=== PATIENT | female | born 1970 | race Caucasian/White ===

== ENCOUNTER 2020-12-30 09:00 | Outpatient (REF) | payer OTHER, SELFPAY ==
--- NOTE | ~2020-12-30 | XR_ITS ---
EXAMINATION: XR KNEE, BILATERAL XR KNEE, RIGHT CLINICAL INFORMATION: Pain COMPARISON: 07/04/2019 TECHNIQUE: AP standing views of both knees. [place] and lateral views of the right knee. FINDINGS: AP standing views of both knees demonstrate significant narrowing of the medial joint space compartments bilaterally with marginal spurring. The spurring has increased since previous study of 07/04/2019. No acute fracture or dislocation is evident. Lateral and sunrise views of the right knee demonstrate some spurring about the patellofemoral joint more prominent about the lateral facet. There is a minimal right knee effusion. XR/XR knee standing BI IMPRESSION: Some progression in bilateral medial joint space compartment degenerative spurring. Right knee degenerative change involving the medial and patellofemoral joints as described. Minimal right knee effusion.
--- NOTE | ~2020-12-30 | XR_ITS ---
EXAMINATION: XR KNEE, BILATERAL XR KNEE, RIGHT CLINICAL INFORMATION: Pain COMPARISON: 07/04/2019 TECHNIQUE: AP standing views of both knees. Lane and lateral views of the right knee. FINDINGS: AP standing views of both knees demonstrate significant narrowing of the medial joint space compartments bilaterally with marginal spurring. The spurring has increased since previous study of 07/04/2019. No acute fracture or dislocation is evident. Lateral and sunrise views of the right knee demonstrate some spurring about the patellofemoral joint more prominent about the lateral facet. There is a minimal right knee effusion. XR/XR knee RT 2V IMPRESSION: Some progression in bilateral medial joint space compartment degenerative spurring. Right knee degenerative change involving the medial and patellofemoral joints as described. Minimal right knee effusion.
== END 2020-12-30 09:01 | disposition home or self-care (01) ==
LOC: HO.HOSX 09:00
PROVIDERS: Visit Provider Orthopaedic Surgery
DX: M17.11 Unilateral primary osteoarthritis, right knee (principal)
CPT/HCPCS: 20610; 73560; 73565; 99212; J1100

== ENCOUNTER → 2021-07-21 13:23 | Outpatient (BNVA) | payer OTHER, SELFPAY | PROVIDERS: PCP Physician Assistant; Visit Provider Orthopaedic Surgery | DX: M17.11 Unilateral primary osteoarthritis, right knee (principal); F11.20 Opioid dependence, uncomplicated | CPT/HCPCS: 20610; 99212; J1100 ==

== ENCOUNTER → 2021-12-05 10:44 | Outpatient (BNVA) | payer OTHER, SELFPAY | PROVIDERS: PCP Physician Assistant; Visit Provider Orthopaedic Surgery | DX: M17.11 Unilateral primary osteoarthritis, right knee (principal); F11.20 Opioid dependence, uncomplicated | CPT/HCPCS: 99212 ==

== ENCOUNTER 2022-10-19 14:03 | Outpatient (REF) | payer OTHER, SELFPAY ==
--- NOTE | ~2022-10-19 | MM_ITS ---
EXAMINATION: MM SCREENING DIGITAL BREAST TOMOSYNTHESIS, BILATERAL CLINICAL INFORMATION: Screening. Asymptomatic. The lifetime risk of breast cancer based on the Tyrer-Cuzick Model is 11%. COMPARISON: Mammography: 08/05/2015, 10/09/2012 (baseline). TECHNIQUE: Digital breast tomosynthesis is performed in both the craniocaudal and mediolateral oblique views along with computer-aided detection (CAD). Synthesized 2D images are generated from the tomosynthesis. FINDINGS: There are scattered areas of fibroglandular density (ACR BI-RADS breast composition Category b). Breast tissue density is symmetrically decreased since prior studies. No developing density or architectural abnormality or significant changes. There are no significant masses, abnormal calcifications, or other abnormalities. MM/MM tomosynthesis screening BI IMPRESSION: No mammographic evidence of malignancy. ASSESSMENT: BI-RADS 2: Benign RECOMMENDATION: Routine annual mammography screening. This patient's information was entered into a reminder system with a target due date for their next mammogram.
== END 2022-10-19 14:04 | disposition home or self-care (01) ==
LOC: HO.MAMMO 14:03
PROVIDERS: PCP Physician Assistant; Visit Provider Physician Assistant
DX: Z12.31 Encounter for screening mammogram for malignant neoplasm of breast (principal)
CPT/HCPCS: 77063; 77067

== ENCOUNTER 2023-07-04 10:07 | Outpatient (AMB) | payer OTHER, SELFPAY ==
--- NOTE | 2023-07-04 10:32 | A.OFFPC_ITS ---
Vital Signs 07/04/23 10:40 Height 5 ft 6 in Weight 207 lb 6 oz BMI 33.5 BP 100/60 Blood Pressure Location Rt brachial Position Sitting Pulse 89 Pulse Source Pulse Oximeter Pulse Oximetry (%) 99 Oxygen Delivery Method Room Air Intake Visit Reasons: medication follow up Global Engineering Manager Required: No Accompanied by: Self / Same As Patient Allergies fluorescein [FLUORESCEIN] Allergy (Severe, Verified 07/04/23 10:56) THROAT SWELLING, HIVES ragweed pollen [RAGWEED] Allergy (Intermediate, Verified 07/04/23 10:56) RUNNY NOSE tree and shrub pollen [TREE AND SHRUB POLLEN] Allergy (Intermediate, Verified 07/04/23 10:56) ITCHY EYES Medication List - Last Reconciled 07/04/23 by Brice Farrell PA-C albuterol sulfate 90 mcg/actuation 1 puff inhalation QID alprazolam 1 mg PO BID 30 days bupropion HCl 200 mg PO Q12H ryvyrgexlp-rklonxktuvzyl-xtni 50-325-40 mg 1 tab PO Q6H PRN carisoprodol 350 mg PO BID PRN cetirizine 10 mg PO DAILY fluticasone propionate 50 mcg/actuation 1 spray intranasal DAILY paroxetine HCl 40 mg PO DAILY 30 days zolpidem 5 mg PO BEDTIME PRN 30 days Tobacco use date assessed: 07/04/23 Dental Screening Dental Screen Date: 07/04/23 Did you have a dental visit in the last 12 months?: Yes Did you have a dental problem in the last 6 months where you did not have access to dental care?: No Was dental information given to patient?: Patient has dentist HPI medication follow up HPI Details Patient is a 52 year old female being evaluated today via telephone. Patient has a past medical history significant for generalized anxiety disorder, migraines, h/o opiate dependence- in remission,? melanoma day eyelid, intermittent asthma, Concerns--> reports having vasomotor symptoms to which she thinks is menopause. She has no follow-up with her food order expediter at this time. She is concerned about her weight and inability to lose weight. She has not formally doing any exercise. She reports she eats fairly well. She is interested in a GLP 1 to help her lose weight . LAINA: Reports she has been having a tough time as of late due to her husbands health. ?She reports she is now seeing a mental health therapist. She has been trying different SSRIs and most recently been placed on Paxil 40 mg which she reports is somewhat effective on reducing her anxiety and depression..? Has not been sleeping well and now using Ambien nightly. She report her anxiety has been elevated due to her current stressors. .. . Melanoma right eye:? She has follow-up with her specialist in [place], usually needs to get her liver enzymes checked annually. Also needs liver imaging to rule out malignant melanoma in the liver. Colon cancer screening- she is now willing to do colonoscopy [facility] Medical History Malignant melanoma Surgical History History of foot surgery History of eye surgery History of section History of tubal ligation Family History Father No problems noted. Mother Mental health disorder Maternal Grandmother Pacemaker Maternal Grandfather Lung cancer Paternal Grandmother Lung cancer Paternal Grandfather Past heart attack Sister Mental health disorder Social History Housing: House Alcohol intake: never Patient Tobacco Use Status: Former Tobacco user Tobacco use type: Cigarette Cigarettes Per Day: 4 Years Smoked: pt staes quit 8-9 mnths ago e-Cigarette/Vaping Use: Never Used service: No Current occupational status: disabled Cognitive needs: No Hearing needs: No Vision needs: No Questionnaire PHQ-9 Over the last 2 weeks, how often have you been bothered by any of the following problems? 1. Little interest or pleasure in doing things: several days 2. Feeling down, depressed, or hopeless: more than half the days 3. Trouble falling or staying asleep, or sleeping too much: nearly every day 4. Feeling tired or having little energy: nearly every day 5. Poor appetite or overeating: not at all 6. Feeling bad about yourself - or that you are a failure or have let yourself or your family down: several days 7. Trouble concentrating on things, such as reading the newspaper or watching television: nearly every day 8. Moving or speaking so slowly that other people could have noticed. Or the opposite - being so fidgety or restless that you have been moving around a lot more than usual: not at all 9. Thoughts that you would be better off or of hurting yourself in some way: not at all Total score: 13 Depression Screening Interpretation: Positive Depression Screening Follow-up: Existing condition Depression Screening Done: Yes 69157 - PHQ-9 Billing: Yes Source: Developed by Drs. Colin Grier, Mariah Taylor, Kei Mercado and colleagues, with an educational abhishek from [employer]. Thrive Questionnaire Date Thrive assessed: 07/04/23 I am a: Patient What is your living situation today?: I have a steady place to live Within the past 12 months, did the food you bought not last and you didn't have the money to get more?: Never true Within the past 12 months, did you worry whether your food would run out before you got money to buy more?: Never true Do you have trouble paying for medicines?: No Do you have trouble getting transportation to medical appointments?: No Do you have trouble paying your heating and electricity bill?: No Do you have trouble taking care of your child, family member or friend?: No Do you have trouble with day-to-day activities such as bathing, preparing meals, shopping, managing finances, etc.?: No Are you currently unemployed and looking for a job?: No Are you interested in more education?: No Please select the resources that you would like help with: None Currently or been in a relationship where the following occur: no concerns reported THRIVE Score: 0 AUDIT C Alcohol Use Questionnaire (AUDIT-C) 1. How often do you have a drink containing alcohol?: Never 3. How often do you have six or more drinks on one occasion?: Never Total Score: 0 LAINA-7 AMB Questionnaire LAINA-7 Date LAINA - 7 assessed: 07/04/23 Feeling nervous, anxious, or on edge: 3 = Nearly every day Not being able to stop or control worryin = Nearly every day Worrying too much about different things: 3 = Nearly every day Trouble relaxin = Nearly every day Being so restless that it is hard to sit still: 2 = More than half the days Becoming easily annoyed or irritable: 3 = Nearly every day Feeling afraid as if something awful might happen: 3 = Nearly every day Total LAINA-7 score (0-4 normal; 5-9 mild; 10-14 moderate; 15-21 severe): 20 Source: Developed by Drs. Colin Grier, Mariah Taylor, Kei Mercado and colleagues, with an educational abhishek from [employer]. LAINA-7 Assessment Billing LAINA-7 Assessment Tool: LAINA-7 Assessment 97075 Review of Systems Const Denies headache(s) Eyes Denies loss of vision ENT Denies vertigo, Denies dizziness, Denies headache(s) and Denies sore throat Card Denies chest pain, Denies leg edema and Denies lightheadedness Resp Denies cough, Denies hemoptysis and Denies wheezing GI Denies abdominal pain, Denies melena, Denies constipation, Denies diarrhea and Denies vomiting Denies urinary frequency, Denies dysuria and Denies urinary urgency Musc Denies arthralgias, Denies joint swelling, Denies numbness and Denies tingling Neuro Denies Abnormal speech present, Denies behavioral changes, Denies vertigo, Denies dizziness, Denies headache(s), Denies loss of vision, Denies memory loss, Denies numbness and Denies tingling Psych Denies anxiety, Denies behavioral changes, Denies depression, Denies memory loss and Denies panic attacks Brandon/Lymph Denies easy bleeding and Denies easy bruising Aller/Immun Denies wheezing Physical exam (Primary Care) Vital Signs: Last Vital Signs Pulse 89 07/04/23 10:40 BP 100/60 07/04/23 10:40 Pulse Ox 99 07/04/23 10:40 Oxygen Delivery Method Room Air 07/04/23 10:40 BMI result Body Mass Index 33.5 BMI Assessment/Plan discussion: High Tobacco/Smoking Status: Tobacco use Status Tobacco use date assessed 07/04/23 07/04/23 10:55 Patient Tobacco Use Status Former Tobacco user 07/04/23 10:32 Tobacco use type Cigarette 07/04/23 10:32 e-Cigarette/Vaping Use Never Used 07/04/23 10:55 PHQ-9: PHQ-9 Score PHQ-9: Total score 13 07/04/23 10:59 Depression Screening Interpretation: Positive Depression Screening Follow-up: Existing condition Thrive Assessment: Date of Thrive Assessment Date Thrive assessed 07/04/23 07/04/23 10:45 Currently or been in a relationship where the following occur: no concerns reported Const Other: Obese General: no acute distress, alert and awake Nutritional Appearance: well nourished Orientation/consciousness: oriented to person, oriented to place and oriented to time HENMT Ears: TM's normal bilaterally General nose exam: Normal nasal mucous membranes and turbinates present Eyes Conjunctivae: conjunctivae normal Sclerae: sclerae normal Pupils: Equal, round and reactive pupils present Neck Neck: Yes no lymphadenopathy and Yes no JVD Thyroid: Thyroid normal Carotids: no bruits Resp Effort & Inspection: normal respiratory effort and not tachypneic Auscultation: no crackles, no rales, no rhonchi and no wheezes Cardio Rate: regular rate Rhythm: regular rhythm Heart sounds: no murmurs and normal S1 and S2 GI Palpation (GI): Soft to palpation, nontender, no hepatomegaly and no splenomegaly Auscultation: normal bowel sounds Skin General skin exam: no rashes or lesions noted and dry skin Neuro General: oriented to person, oriented to place and oriented to time Cranial nerves: Yes Equal, round and reactive pupils present Speech: No Abnormal speech present Gait exam (Neuro): Normal gait present Motor exam (neuro): no tremor noted Extrem Right upper extremity: full ROM Left upper extremity: full ROM Right lower extremity: full ROM; no edema Left lower extremity: full ROM; no edema Psych Mental Status: mental status grossly normal Speech and movement: Normal speech and movement present Affect: normal affect Attitude: cooperative Thought process: Normal thought process present Assessment and Plan Assessment & Plan (1) Malignant melanoma: Code(s): C43.9 - Malignant melanoma of skin, unspecified Qualifiers: Eyelid: upper Laterality: right Melanoma location: eyelid including canthus Qualified Code(s): C43.111 - Malignant melanoma of right upper eyelid, including canthus Plan: Patient followed by specialist in [place] for her eye melanoma. She needs liver enzymes and liver imaging for malignant surveillance. (2) LAINA (generalized anxiety disorder): Code(s): F41.1 - Generalized anxiety disorder Plan: P Continues to suffer with moderate to severe anxiety. Patient's LAINA-7 score positive for moderate to severe anxiety which has been an existing condition for her. Uses alprazolam 1 mg b.i.d. now on Paxil 40 mg and feels it is somewhat effective on reducing her anxiety and depression. She reports she is still on look for a psychiatrist and will call to be on waiting list.. (3) MDD (major depressive disorder): Code(s): F32.9 - Major depressive disorder, single episode, unspecified Qualifiers: Active/Remission status: currently active Major depression episode sev erity: moderate Major depression recurrence: recurrent Qualified Code(s): F33.1 - Major depressive disorder, recurrent, moderate Plan: Patient does major depressive disorder and speaking with a mental health therapist at this time, she is still on look for a psychiatrist. Placed on Paxil 40 mg recently and feels it is helpful for her depressive mood. (4) Migraines: Code(s): G43.909 - Migraine, unspecified, not intractable, without status migrainosus Qualifiers: Intractability: not intractable Migraine type: without aura Status migrainosus presence: without status migrainosus Qualified Code(s): G43.009 - Migraine without aura, not intractable, without status migrainosus Plan: She reports her migraines have been fairly well controlled with only p.r.n. use of Fioricet. (5) Knee osteoarthritis: Code(s): M17.9 - Osteoarthritis of knee, unspecified Qualifiers: Laterality: bilateral Osteoarthritis type: primary Qualified Code(s): M17.0 - Bilateral primary osteoarthritis of knee Plan: Reports her bilateral knee pain continues to be a problem for her. She reports her knee pain hinder her from being more physically active. She was followed by [facility] in did get cortisone injections in the past. She will like to follow-up with ortho for possible cortisone injection. (6) Opiate dependence: Code(s): F11.20 - Opioid dependence, uncomplicated Qualifiers: Substance use status: uncomplicated Qualified Code(s): F11.20 - Opioid dependence, uncomplicated Plan: in remission - was on Suboxone for short term time. . (7) Obese: Code(s): E66.9 - Obesity, unspecified Qualifiers: Body mass index: BMI 33.0-33.9 Obesity classification: adult class 1 (BMI 30 - 34.9) Obesity type: due to excess calories Serious obesity comorbidity presence: without serious comorbidity Qualified Code(s): E66.09 - Other obesity due to excess calories; Z68.33 - Body mass index [BMI] 33.0-33.9, adult Plan: Patient's BMI is over 30 and she does understand she needs to be more physically active and adapt to better eating habits to reduce her weight. She is interested in starting a GLP 1 to help her lose weight. (8) Menopausal symptoms: Code(s): N95.1 - Menopausal and female climacteric states Plan: Will follow-up with her OBGYN about menopausal symptoms.. Did discuss the possibility of starting supplement black cohosh for her hot flashes. (9) Colon cancer screening: Code(s): Z12.11 - Encounter for screening for malignant neoplasm of colon Plan: She is willing now to do colonoscopy. Orders: Orders Vitamin D 25-OH Total 07/04/23 E66.09 - Other obesity due to excess calories, Z68.33 - Body mass index [BMI] 33.0-33.9, adult abdomen limited 07/04/23 C43.111 - Malignant melanoma of right upper eyelid, including canthus Referrals Gastroenterology Referral Z12.11 - Encounter for screening for malignant neoplasm of colon Medications: New semaglutide (weight loss) (Weammonvabiola) administer weeks 1 through 4 of therapy 0.25 mg (0.5 mL) subcut QWEEK 4 weeks 2 mL 0RF E66.09 - Other obesity due to excess calories, Z68.33 - Body mass index [BMI] 33.0-33.9, adult cholecalciferol (vitamin D3) 50 mcg PO DAILY 90 days 90 caps 1RF E55.9 - Vitamin D deficiency, unspecified, E66.09 - Other obesity due to excess calories, Z68.33 - Body mass index [BMI] 33.0-33.9, adult Changed From becofjsusm-xfknvjjuhejvk-deyy 50-325-40 mg 1 tab PO Q6H PRN 7 tabs 0RF pain G43.009 - Migraine without aura, not intractable, without status migrain osus To lfnvjqfkuh-rkblttsubexll-wjwa 50-325-40 mg 1 tab PO Q6H 30 days PRN 15 tabs 3RF pain G43.009 - Migraine without aura, not intractable, without status m igrainosus Refilled alprazolam 1 mg PO BID 30 days 60 tabs 3RF F41.1 - Generalized anxiety disorder albuterol sulfate 90 mcg/actuation 1 puff inhalation QID 18 ea 5RF J45.909 - Unspecified asthma, uncomplicated zolpidem 5 mg PO BEDTIME 30 days PRN 30 tabs 3RF sleep G47.00 - Insomnia, uns pecified paroxetine HCl 40 mg PO DAILY 30 days 30 tabs 3RF F41.1 - Generalized anxiety disorder bupropion HCl 200 mg PO Q12H 60 caps 5RF F41.9 - Anxiety disorder, unspecified fluticasone propionate 50 mcg/actuation 1 spray intranasal DAILY 16 mL 3RF cetirizine 10 mg PO DAILY 30 tabs 5RF axkmxypued-hgxnawkbmnwzz-omjd 50-325-40 mg 1 tab PO Q6H PRN 7 tabs 0RF pain G43.009 - Migraine without aura, not intractable, without status migrainosus Coding Level of Care Code Est Pt Level 4 (16512) Diagnoses 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 C43.111 Eyelid: upper Laterality: right Melanoma location: eyelid including canthus LAINA (generalized anxiety disorder) F41.1 Moderate episode of recurrent major depressive disorder F33.1 Active/Remission status: currently active Major depression episode severity: moderate Major depression recurrence: recurrent Migraine without aura and without status migrainosus, not intractable G43.009 Intractability: not intractable Migraine type: without aura Status migrainosus presence: without status migrainosus Primary osteoarthritis of both knees M17.0 Laterality: bilateral Osteoarthritis type: primary Uncomplicated opioid dependence F11.20 Substance use status: uncomplicated Class 1 obesity due to excess calories without serious comorbidity with body mass index (BMI) of 33.0 to 33.9 in adult E66.09; Z68.33 Body mass index: BMI 33.0-33.9 Obesity classification: adult class 1 (BMI 30 - 34.9) Obesity type: due to excess calories Serious obesity comorbidity presence: without serious comorbidity Menopausal symptoms N95.1 Colon cancer screening Z12.11 Additional Codes LAINA-7 Assessment Billing - LAINA-7 Assessment Tool: LAINA-7 Assessment [id number] ([id number])
[2023-07-04 10:40] VITALS: BP 100/60; PULSE 89; O2SAT 99; BMI 33.5
== END 2023-07-04 11:23 | disposition home or self-care (01) ==
PROVIDERS: PCP Physician Assistant; Visit Provider Physician Assistant
DX: C43.111 Malignant melanoma of right upper eyelid, including canthus (principal); F33.1 Major depressive disorder, recurrent, moderate; F11.20 Opioid dependence, uncomplicated; F41.1 Generalized anxiety disorder; G43.009 Migraine without aura, not intractable, without status migrainosus; M17.0 Bilateral primary osteoarthritis of knee; E66.09 Other obesity due to excess calories; Z68.33 Body mass index [BMI] 33.0-33.9, adult; N95.1 Menopausal and female climacteric states; Z12.11 Encounter for screening for malignant neoplasm of colon
CPT/HCPCS: 96127; 99214

== ENCOUNTER 2023-07-20 08:56 | Outpatient (REF) | payer OTHER, SELFPAY ==
[2023-07-20 09:37] LABS: Hematocrit 31.1 % (37.0-47.0); Mean Corpuscular HGB Conc 32.2 g/dl (31.0-35.0); Mean Corpuscular Hemoglobin 25.6 pg (27.0-33.0); Mean Corpuscular Volume 79.5 fL (80.0-98.0); Mean Platelet Volume 9.4 fL (9.4-12.3); Platelet Count 353 X10*3/uL (160-400); Red Blood Count 3.91 X10*6/uL (4.20-5.50); Red Cell Distribution Width 13.9 % (11.0-16.0); White Blood Count 4.7 X10*3/uL (4.8-10.8)
[2023-07-20 10:08] LABS: Alanine Aminotransferase 29 U/L (0-31); Albumin Level 3.6 g/dL (3.5-5.0); Alkaline Phosphatase 83 U/L (39-117); Anion Gap 10 (12-20); Aspartate Amino Transferase 38 U/L (5-31); Bilirubin Total 0.1 mg/dL (0.0-1.0); Blood Urea Nitrogen 10 mg/dL (9-16); Calcium 9.2 mg/dL (8.4-10.2); Carbon Dioxide 29 mmol/L (22-29); Chloride 104 mmol/L (96-108); Cholesterol 168 mg/dL (<200); Estimated Glomerular Filt Rate > 60; Glucose Fasting 88 mg/dL (60-99); HDL Cholesterol 47 mg/dL (>40); LDL Cholesterol Calculated 98 mg/dL (<100); Potassium 4.3 mmol/L (3.3-5.1); Sodium 139 mmol/L (135-145); Total Protein 6.6 g/dL (6.5-8.0); Triglycerides 119 mg/dL (<150)
[2023-07-20 10:26] LABS: TSH reflex Free T4 0.65 uIU/mL (0.32-4.0); Vitamin D 25-OH Total 25.8 ng/mL (>30)
== END 2023-07-20 08:57 | disposition home or self-care (01) ==
LOC: HO.LAB 08:56
PROVIDERS: PCP Physician Assistant; Visit Provider Physician Assistant
DX: Z13.220 Encounter for screening for lipoid disorders (principal); Z13.29 Encounter for screening for other suspected endocrine disorder; J45.909 Unspecified asthma, uncomplicated; F32.9 Major depressive disorder, single episode, unspecified; E66.09 Other obesity due to excess calories; Z68.33 Body mass index [BMI] 33.0-33.9, adult
CPT/HCPCS: 36415; 80053; 80061; 82306; 84443; 85027

== ENCOUNTER 2023-07-26 11:17 | Outpatient (AMB) | payer OTHER, SELFPAY ==
--- NOTE | 2023-07-26 11:15 | A.OFFPC_ITS ---
Intake Visit Reasons: all over body pain/[phone] Allergies fluorescein [FLUORESCEIN] Allergy (Severe, Verified 07/04/23 10:56) THROAT SWELLING, HIVES ragweed pollen [RAGWEED] Allergy (Intermediate, Verified 07/04/23 10:56) RUNNY NOSE tree and shrub pollen [TREE AND SHRUB POLLEN] Allergy (Intermediate, Verified 07/04/23 10:56) ITCHY EYES Tobacco use date assessed: 07/04/23 HPI all over body pain/[phone] HPI Details Patient is a 53 year female being evaluated today via telephone. She reports over the last several weeks having worsening total body pain without any history of trauma. She does have a history of fibromyalgia. She was seen at the walk-in clinic several weeks ago was given muscle relaxer (Soma) which helps reduce her pain. Otherwise [id number] analgesics such as NSAIDs and Tylenol have not been helpful. She is unclear of a trigger of her pain as she has not been experiencing any decline in her mental health. She reports this has happened to her in the past which self resolved with pain medication and muscle relaxers. [facility] Medical History Malignant melanoma Surgical History History of foot surgery History of eye surgery History of section History of tubal ligation Family History Father No problems noted. Mother Mental health disorder Maternal Grandmother Pacemaker Maternal Grandfather Lung cancer Paternal Grandmother Lung cancer Paternal Grandfather Past heart attack Sister Mental health disorder Social History Housing: House Alcohol intake: never Patient Tobacco Use Status: Former Tobacco user Tobacco use type: Cigarette Cigarettes Per Day: 4 Years Smoked: pt staes quit 8-9 mnths ago e-Cigarette/Vaping Use: Never Used service: No Current occupational status: disabled Cognitive needs: No Hearing needs: No Vision needs: No Questionnaire Thrive Questionnaire Date Thrive assessed: 07/04/23 LAINA-7 AMB Questionnaire LAINA-7 Date LAINA - 7 assessed: 07/04/23 Source: Developed by Drs. Colin Grier, Mariah Taylor, Kei Mercado and colleagues, with an educational abhishek from [employer]. Review of Systems Const Denies headache(s) Eyes Denies loss of vision ENT Denies vertigo, Denies dizziness, Denies headache(s), Reports neck pain and Denies sore throat Card Denies chest pain, Denies leg edema and Denies lightheadedness Resp Denies cough, Denies hemoptysis and Denies wheezing GI Denies abdominal pain, Denies melena, Denies constipation, Denies diarrhea and Denies vomiting Denies urinary frequency, Denies dysuria and Denies urinary urgency Musc Reports back pain, Reports arthralgias, Denies joint swelling, Reports muscle cramps, Reports neck pain, Denies numbness and Denies tingling Neuro Denies behavioral changes, Denies vertigo, Denies dizziness, Denies headache(s), Denies loss of vision, Denies memory loss, Denies numbness and Denies tingling Psych Denies anxiety, Denies behavioral changes, Denies depression, Denies memory loss and Denies panic attacks Brandon/Lymph Denies easy bleeding and Denies easy bruising Aller/Immun Denies wheezing Physical exam (Primary Care) Tobacco/Smoking Status: Tobacco use Status Tobacco use date assessed 07/04/23 07/26/23 11:15 Patient Tobacco Use Status Former Tobacco user 07/26/23 11:15 Tobacco use type Cigarette 07/26/23 11:15 e-Cigarette/Vaping Use Never Used 07/26/23 11:15 Thrive Assessment: Date of Thrive Assessment Date Thrive assessed 07/04/23 07/26/23 11:15 Telehealth Telehealth Location of provider rendering services: practice address Location of patient: address on file Patient Identification confirmed using: Name, : Yes Telehealth method: voice only Patient verbally consented to treatment: Yes Patient verbally consented to billing insurance company: Yes Patient informed of any privacy concerns related to visit: Yes Minutes spent on Phone/Video with Pt.: 11 Assessment and Plan Assessment & Plan (1) Total body pain: Code(s): R52 - Pain, unspecified Plan: Unclear diagnosis ? total body pain per patient ? fibromyalgia or PMR. will supply with prednisone 20 x 3 weeks , then 10mg x 3weeks, 5 mg x 3 weeks. Medications: New prednisone 20 mg PO DAILY 21 days 21 tabs 0RF R52 - Pain, unspecified Changed From carisoprodol 350 mg PO BID PRN M17.11 - Unilateral primary osteoarthritis, right knee To carisoprodol 350 mg PO BID 5 days 10 tabs 0RF M17.11 - Unilateral primary osteoarthritis, right knee Coding Level of Care Code Tele Est Pt Level 3 (87508) Diagnoses Total body pain R52
== END 2023-07-26 12:45 | disposition home or self-care (01) ==
LOC: HO.HMGH 11:17
PROVIDERS: PCP Physician Assistant; Visit Provider Physician Assistant
DX: R52 Pain, unspecified (principal)
CPT/HCPCS: 99213

== ENCOUNTER 2024-10-08 14:24 | Outpatient (AMB) | payer OTHER, SELFPAY ==
--- NOTE | 2024-10-08 13:33 | A.OFFPC_ITS ---
Intake Visit Reasons: follow up/ med review Learning Coordinator Required: No Information Interpreted: non-clinical & clinical Automobile Designer: Not Required per policy Accompanied by: Self / Same As Patient Allergies fluorescein [FLUORESCEIN] Allergy (Severe, Verified 10/08/24 14:48) THROAT SWELLING, HIVES ragweed pollen [RAGWEED] Allergy (Intermediate, Verified 10/08/24 14:48) RUNNY NOSE tree and shrub pollen [TREE AND SHRUB POLLEN] Allergy (Intermediate, Verified 10/08/24 14:48) ITCHY EYES orphenadrine Adverse Reaction (Intermediate, Verified 10/08/24 14:48) Hallucinations Medication List - Last Reconciled 10/08/24 by Brice Farrell PA-C albuterol sulfate 90 mcg/actuation 1 puff inhalation QID 90 days alprazolam 1 mg PO BID 7 days bupropion HCl SR 200 mg PO Q12H cbgxoyqtpw-mhzstnkphpdah-fgxu 50-325-40 mg 1 tab PO Q6H PRN 30 days cetirizine 10 mg PO DAILY cholecalciferol (vitamin D3) 50 mcg PO DAILY 90 days diclofenac sodium 50 mg PO BID PRN 15 days ferrous sulfate 325 mg PO DAILY 30 days fluticasone propionate 50 mcg/actuation 1 spray intranasal DAILY hydrocodone-acetaminophen 5-325 mg 1 tab PO BID 3 days paroxetine HCl 40 mg PO DAILY 30 days semaglutide (weight loss) (Wegovy) 0.25 mg (0.5 mL) subcut QWEEK 4 weeks zolpidem 5 mg PO BEDTIME PRN 7 days Tobacco use date assessed: 10/08/24 Dental Screening Dental Screen Date: 10/08/24 Did you have a dental visit in the last 12 months?: No Did you have a dental problem in the last 6 months where you did not have access to dental care?: No Was dental information given to patient?: No HPI follow up/ med review HPI Details Patient is a 54 year old female being evaluated today via telephone. Patient has a past medical history significant for generalized anxiety disorder, migraines, h/o opiate dependence- in remission,? melanoma day eyelid, intermittent asthma, Concerns--> has noted a mass over her left lower calf that is painful upon palpation. She otherwise denies any pain to the area when walking. She is conc erned as she has a family history and personal history of cancer and would like evaluation. . LAINA: Has been having a bit more depression and anxiety as of late as she reports her father and her enfhxi-um-jsg recently. She is currently talking to a mental health therapist and has started in a bereavement group. She continues on Wellbutrin which she reports really helps her mental health.? And does always we have discussed benzodiazepines and there habit-forming nature. She continues on alprazolam 1 mg twice a day for quite some time and has been difficult for her to wean to lower doses. Has not been sleeping well and now using Ambien nightly. She report her anxiety has been elevated due to her current stressors. .. . Melanoma right eye:? She has follow-up with her specialist in [place], usually needs to get her liver enzymes checked annually. Also needs liver imaging to rule out malignant melanoma in the liver. [facility] Medical History Malignant melanoma Surgical History History of foot surgery History of eye surgery History of section History of tubal ligation Family History Father No problems noted. Mother Mental health disorder Maternal Grandmother Pacemaker Maternal Grandfather Lung cancer Paternal Grandmother Lung cancer Paternal Grandfather Past heart attack Sister Mental health disorder Social History Housing: House Alcohol intake: never Patient Tobacco Use Status: Former Tobacco user Tobacco use type: Cigarette Cigarettes Per Day: 4 Years Smoked: pt staes quit 8-9 mnths ago e-Cigarette/Vaping Use: Never Used service: No Current occupational status: disabled Cognitive needs: No Hearing needs: No Vision needs: No Questionnaire PHQ-9 Over the last 2 weeks, how often have you been bothered by any of the following problems? 1. Little interest or pleasure in doing things: nearly every day 2. Feeling down, depressed, or hopeless: more than half the days 3. Trouble falling or staying asleep, or sleeping too much: nearly every day 4. Feeling tired or having little energy: nearly every day 5. Poor appetite or overeating: more than half the days 6. Feeling bad about yourself - or that you are a failure or have let yourself or your family down: nearly every day 7. Trouble concentrating on things, such as reading the newspaper or watching television: nearly every day 8. Moving or speaking so slowly that other people could have noticed. Or the opposite - being so fidgety or restless that you have been moving around a lot more than usual: nearly every day 9. Thoughts that you would be better off or of hurting yourself in some way: not at all Total score: 22 Depression Screening Interpretation: Positive Depression Screening Follow-up: Existing condition and In treatment Depression Screening Done: Yes 66002 - PHQ-9 Billing: Yes Source: Developed by Drs. Colin Grier, Mariah Taylor, Kei Mercado and colleagues, with an educational abhishek from [employer]. Thrive Questionnaire Date Thrive assessed: 10/08/24 I am a: Patient What is your living situation today?: I have a steady place to live Within the past 12 months, did the food you bought not last and you didn't have the money to get more?: Never true Within the past 12 months, did you worry whether your food would run out before you got money to buy more?: Never true Do you have trouble paying for medicines?: No Do you have trouble getting transportation to medical appointments?: No Do you have trouble paying your heating and electricity bill?: No Do you have trouble taking care of your child, family member or friend?: No Do you have trouble with day-to-day activities such as bathing, preparing meals, shopping, managing finances, etc.?: No Are you currently unemployed and looking for a job?: No Are you interested in more education?: No Please select the resources that you would like help with: None Currently or been in a relationship where the following occur: No concerns reported THRIVE Score: 0 AUDIT C Alcohol Use Questionnaire (AUDIT-C) 1. How often do you have a drink containing alcohol?: Never 3. How often do you have six or more drinks on one occasion?: Never Total Score: 0 LAINA-7 AMB Questionnaire LAINA-7 Date LAINA - 7 assessed: 10/08/24 Feeling nervous, anxious, or on edge: 3 = Nearly every day Not being able to stop or control worryin = Nearly every day Worrying too much about different things: 3 = Nearly every day Trouble relaxin = Nearly every day Being so restless that it is hard to sit still: 3 = Nearly every day Becoming easily annoyed or irritable: 3 = Nearly every day Feeling afraid as if something awful might happen: 3 = Nearly every day Total LAINA-7 score (0-4 normal; 5-9 mild; 10-14 moderate; 15-21 severe): 21 Source: Developed by Drs. Colin Grier, Mariah Taylor, Kei Mercado and colleagues, with an educational abhishek from [employer]. LAINA-7 Assessment Billing LAINA-7 Assessment Tool: LAINA-7 Assessment 96530 Review of Systems Const Denies headache(s) Eyes Denies loss of vision ENT Denies vertigo, Denies dizziness, Denies headache(s) and Denies sore throat Card Denies chest pain, Denies leg edema and Denies lightheadedness Resp Denies cough, Denies hemoptysis and Denies wheezing GI Denies abdominal pain, Denies melena, Denies constipation, Denies diarrhea and Denies vomiting Denies urinary frequency, Denies dysuria and Denies urinary urgency Musc Denies arthralgias, Denies joint swelling, Denies numbness and Denies tingling Neuro Denies behavioral changes, Denies vertigo, Denies dizziness, Denies headache(s), Denies loss of vision, Denies memory loss, Denies numbness and Denies tingling Psych Reports anxiety, Denies behavioral changes, Denies depression, Reports difficulty concentrating, Reports irritability, Denies memory loss and Reports panic attacks Brandon/Lymph Denies easy bleeding and Denies easy bruising Aller/Immun Denies wheezing Physical exam (Primary Care) Tobacco/Smoking Status: Tobacco use Status Tobacco use date assessed 10/08/24 10/08/24 14:23 Patient Tobacco Use Status Former Tobacco user 10/08/24 13:34 Tobacco use type Cigarette 10/08/24 13:34 e-Cigarette/Vaping Use Never Used 10/08/24 13:34 PHQ-9: PHQ-9 Score PHQ-9: Total score 22 10/08/24 14:23 Depression Screening Interpretation: Positive Depression Screening Follow-up: Existing condition and In treatment Thrive Assessment: Date of Thrive Assessment Date Thrive assessed 10/08/24 10/08/24 14:23 Currently or been in a relationship where the following occur: No concerns reported Telehealth Telehealth Telehealth Platform: Telephone Location of provider rendering services: practice address Location of patient: address on file Patient Identification confirmed using: Name, : Yes Telehealth method: voice only Patient verbally consented to treatment: Yes Patient verbally consented to billing insurance company: Yes Patient informed of any privacy concerns related to visit: Yes Minutes spent on Phone/Video with Pt.: 15 Coding Level of Care Code Tele Est Pt Level 4 (11583) Diagnoses Mass of left lower leg R22.42 LAINA (generalized anxiety disorder) F41.1 Primary insomnia F51.01 Insomnia type: primary 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 C43.111 Melanoma location: eyelid including canthus Laterality: right Eyelid: upper Moderate episode of recurrent major depressive disorder F33.1 Major depression recurrence: recurrent Active/Remission status: currently active Major depression episode severity: moderate Additional Codes LAINA-7 Assessment Billing - LAINA-7 Assessment Tool: LAINA-7 Assessment 57117 ([id number]) PHQ-9 - 95497 - PHQ-9 Billing: Yes ([id number]) Assessment & Plan Assessment & Plan (1) Mass of left lower leg: Code(s): R22.42 - Localized swelling, mass and lump, left lower limb Category: Medical Plan: Patient reports noting a mass over left calf. She reports it is not bothersome until touched upon. She is concerned about cancer and she is willing to get ultrasound to evaluate for cystic for solid mass (2) LAINA (generalized anxiety disorder): Code(s): F41.1 - Generalized anxiety disorder Category: Medical Plan: Patient continues to speak with a mental health therapist at [facility]. She reports she is on a waiting list to see a psychiatrist. Did have a long conversation about habit-forming nature of alprazolam as she does take 1 mg b.i.d.. She is very anxious about not having the medication as she continues to suffer with severe anxiety. I advised her to speak with the psychiatrist when she appointment available abo ut taking over her treatment of her anxiety as it seems to be fairly severe. (3) Insomnia: Code(s): G47.00 - Insomnia, unspecified Category: Medical Qualifiers: Insomnia type: primary Qualified Code(s): F51.01 - Primary insomnia Plan: Patient continues with nightly use of zolpidem with good effect on sleep. (4) Malignant melanoma: Code(s): C43.9 - Malignant melanoma of skin, unspecified Category: Medical Qualifiers: Melanoma location: eyelid including canthus Laterality: right Eyelid: upper Qualified Code(s): C43.111 - Malignant melanoma of right upper eyelid, including canthus Plan: As per HPI patient has a history of right eye malignant melanoma. Was followed by [place] any ear though seems to have lost follow-up lately. She is trying to get reestablished at [facility] to continue monitoring her melanoma which has been in remission for quite some time. (5) MDD (major depressive disorder): Code(s): F32.9 - Major depressive disorder, single episode, unspecified Category: Medical Qualifiers: Major depression recurrence: recurrent Active/Remission status: currently active Major depression episode severity: moderate Qualified Code(s): F33.1 - Major depressive disorder, recurrent, moderate Plan: Patient's PHQ-9 score positive for depression which has been existing condition for her. She is speaking with a mental health therapist though has found it very difficult to get a psychiatrist. She continues to be on a waiting list at [facility] Orders: Orders Complete Blood Count no Diff Today J45.909 - Unspecified asthma, uncomplicated US abdomen complete Today C43.111 - Malignant melanoma of right upper eyelid, including canthus Comprehensive [place]. Panel Fast Today Z13.1 - Encounter for screening for diabetes mellitus US Extremity Nonvas Limited LT Today R22.42 - Localized swelling, mass and lump, left lower limb Medications: Discontinued hydrocodone-acetaminophen 5-325 mg Partial Fill upon patient request. Discontinued Reason: Doctor's Order 1 tab PO BID 3 days 6 tabs 0RF pain R52 - Pain, unspecified
--- OUTSIDE RECORDS SUMMARY | 2024-10-08 16:28 | XMS_ITS | Clinical Summary ---
Author Organization [facility] it Address [address] [place] [address] Care Team Providers Care Ssis Ssrs Developer Name Role Phone Unavailable Primary Care Provider Unavailabl e Social History Tobacco Use Types Packs/Day Years Used Date Smoking Tobacco: Never Assessed Comments Unknown Sex and Gender Information Value Date Recorded Sex Assigned at Not on file Legal Sex Female 9:49 PM EST Gender Identity Not on file Sexual Orientation Not on file Plan of Treatment Health Maintenance Due Date Last Done Comments Breast Cancer Screening 1972 DTaP,Tdap,and Td Vaccines (1 - Tdap) 07/22/1991 Hepatitis B Vaccines (1 of 3 - 19+ 3-dose series) 07/22/1991 Cervical Cancer Screening: P ap Smear 1993 Colorectal Cancer Screening: Colonoscopy 04/01/2022 Depression Screening 04/01/2022 HIV Screening 04/01/2022 Hepatitis C Screening 04/01/2022 Social Influencers of Health Screening 04/01/2022 Pneumococcal Vaccine: 50+ Ye ars (1 of 1 - PCV) 2022 Zoster Vaccines (1 of 2) 2022 COVID-19 Vaccine ( - 2023-2 5 season) 2023 Influenza Vaccine (Season Ended) 2024 HIB Vaccines Aged Out No longer eligi ble based on patient's age to complete this topic HPV Vaccines Aged Out No longer eligi ble based on patient's age to complete this topic Hepatitis A Vaccines Aged Out No long er eligible based on patient's age to complete this topic IPV Vaccines Aged Out No longer eligi ble based on patient's age to complete this topic MMR Vaccines Aged Out No longer eligi ble based on patient's age to complete this topic Meningococcal ACWY Vaccine Aged Out N o longer eligible based on patient's age to complete this topic Meningococcal B Vaccine Aged Out No l onger eligible based on patient's age to complete this topic Pneumococcal Vaccine: Pediat rics (0 to 5 Years) and At-Risk Patients (6 to 64 Years) Aged Out No longer eligible b ased on patient's age to complete this topic RSV Immunization Patients Un luisa 20 months Aged Out No longer eligible b ased on patient's age to complete this topic Varicella Vaccines Aged Out No longer eligible based on patient's age to complete this topic
== END 2024-10-08 15:59 | disposition home or self-care (01) ==
LOC: HO.HMCH 14:24
PROVIDERS: PCP Physician Assistant; Visit Provider Physician Assistant
DX: R22.42 Localized swelling, mass and lump, left lower limb (principal); F41.1 Generalized anxiety disorder; C43.111 Malignant melanoma of right upper eyelid, including canthus; F33.1 Major depressive disorder, recurrent, moderate; F51.01 Primary insomnia

== ENCOUNTER → 2024-10-08 14:24 | Outpatient (BNVA) | payer OTHER, SELFPAY | PROVIDERS: PCP Physician Assistant; Visit Provider Physician Assistant | DX: F41.1 Generalized anxiety disorder (principal); G43.909 Migraine, unspecified, not intractable, without status migrainosus; F11.21 Opioid dependence, in remission; R22.42 Localized swelling, mass and lump, left lower limb; F41.9 Anxiety disorder, unspecified; F51.01 Primary insomnia; F33.1 Major depressive disorder, recurrent, moderate; G47.00 Insomnia, unspecified; J45.909 Unspecified asthma, uncomplicated; Z85.820 Personal history of malignant melanoma of skin | CPT/HCPCS: 96127 ==

== ENCOUNTER 2024-12-31 14:09 | Outpatient (AMB) | payer OTHER, SELFPAY ==
[2024-12-31 14:18] VITALS: BP 124/76; PULSE 78; RESP 18; TEMP 36.2; O2SAT 95; BMI 30.8
--- NOTE | 2024-12-31 14:18 | A.OFFPC_ITS ---
Vital Signs 12/31/24 14:18 Height 5 ft 6 in Weight 191 lb BMI 30.8 BP 124/76 Blood Pressure Location Rt brachial Position Sitting Respiration 18 Pulse 78 Pulse Source Pulse Oximeter Temp 97.1 F Temp Source Temporal Artery Scan Pulse Oximetry (%) 95 Oxygen Delivery Method Room Air Intake Visit Reasons: Med. Review Nursing Assoc Required: No Accompanied by: Self / Same As Patient Allergies fluorescein (FLUORESCEIN) Allergy (Severe, Verified 12/31/24 14:42) THROAT SWELLING, HIVES ragweed pollen (RAGWEED) Allergy (Intermediate, Verified 12/31/24 14:42) RUNNY NOSE tree and shrub pollen (TREE AND SHRUB POLLEN) Allergy (Intermediate, Verified 12/31/24 14:42) ITCHY EYES orphenadrine Adverse Reaction (Intermediate, Verified 12/31/24 14:42) Hallucinations Medication List - Last Reconciled 12/31/24 by Brice Farrell PA-C albuterol sulfate 90 mcg/actuation 1 puff inhalation QID 90 days alprazolam 1 mg PO BID 30 days bupropion HCl SR 200 mg PO Q12H cetirizine 10 mg PO DAILY cholecalciferol (vitamin D3) 50 mcg PO DAILY 90 days ferrous sulfate 325 mg PO DAILY 30 days fluticasone propionate 50 mcg/actuation 1 spray intranasal DAILY paroxetine HCl 40 mg PO DAILY 30 days semaglutide (weight loss) (Wegovy) 0.25 mg (0.5 mL) subcut QWEEK 4 weeks zolpidem 5 mg PO BEDTIME 30 days Tobacco use date assessed: 12/31/24 Dental Screening Dental Screen Date: 12/31/24 Did you have a dental visit in the last 12 months?: No Did you have a dental problem in the last 6 months where you did not have access to dental care?: No Was dental information given to patient?: Patient has dentist HPI Med. Review HPI Details Patient is a 54 year old female here today for follow-up visit. Patient has a past medical history significant for generalized anxiety disorder, migraines, h/o opiate dependence- in remission,? melanoma day eyelid, intermittent asthma, Concerns--> The patient reports generalized body aches, which are being investigated for potential autoimmune causes. Rheumatology labs have been ordered to explore this further. Class 1 obesity: Patient was previously on Wegovy and was able to lose weight though due to insurance coverage she has not been able to restart the medication. The patient is experiencing obesity, which she attributes partly to her inability to exercise due to severe osteoarthritis in both knees. She has been advised to engage in non-weightbearing exercises such as swimming and biking. She is considering knee replacement surgery but is currently unable to proceed due to unstable housing conditions. . LAINA: Has been having a bit more depression and anxiety as of late as she reports her father and her [id number] recently. She is currently talking to a mental health therapist and has started in a bereavement group. She continues on Wellbutrin which she reports really helps her mental health.? And does always we have discussed benzodiazepines and there habit-forming nature. She continues on alprazolam 1 mg twice a day for quite some time and has been difficult for her to wean to lower doses. Has not been sleeping well and now using Ambien nightly. She report her anxiety has been elevated due to her current stressors. .. . Melanoma right eye:? She has follow-up with her specialist in [place], usually needs to get her liver enzymes checked annually. Also needs liver imaging to rule out malignant melanoma in the liver. [facility] Medical History Malignant melanoma Surgical History History of foot surgery History of eye surgery History of section History of tubal ligation Family History Father Bone cancer Mother Mental health disorder Hypothyroid Maternal Grandmother Pacemaker Maternal Grandfather Lung cancer Paternal Grandmother Lung cancer Paternal Grandfather Past heart attack Sister Mental health disorder Brother Hypothyroid Social History Housing: House Alcohol intake: never Patient Tobacco Use Status: Former Tobacco user Tobacco use type: Cigarette Cigarettes Per Day: 4 Years Smoked: pt staes quit 8-9 mnths ago e-Cigarette/Vaping Use: Never Used service: No Current occupational status: disabled Cognitive needs: No Hearing needs: No Vision needs: No Questionnaire PHQ-9 Over the last 2 weeks, how often have you been bothered by any of the following problems? 1. Little interest or pleasure in doing things: nearly every day 2. Feeling down, depressed, or hopeless: more than half the days 3. Trouble falling or staying asleep, or sleeping too much: nearly every day 4. Feeling tired or having little energy: nearly every day 5. Poor appetite or overeating: several days 6. Feeling bad about yourself - or that you are a failure or have let yourself or your family down: more than half the days 7. Trouble concentrating on things, such as reading the newspaper or watching television: more than half the days 8. Moving or speaking so slowly that other people could have noticed. Or the opposite - being so fidgety or restless that you have been moving around a lot more than usual: several days 9. Thoughts that you would be better off or of hurting yourself in some way: not at all Total score: 17 Source: Developed by Drs. Colin Grier, Mariah Taylor, Kei Mercado and colleagues, with an educational abhishek from [employer]. Thrive Questionnaire Date Thrive assessed: 12/31/24 I am a: Patient What is your living situation today?: I do not have a steady places to live I choose not to answer this question Within the past 12 months, did the food you bought not last and you didn't have the money to get more?: Sometimes True Within the past 12 months, did you worry whether your food would run out before you got money to buy more?: Sometimes True Do you have trouble paying for medicines?: No Do you have trouble getting transportation to medical appointments?: No Do you have trouble paying your heating and electricity bill?: No Do you have trouble taking care of your child, family member or friend?: No Do you have trouble with day-to-day activities such as bathing, preparing meals, shopping, managing finances, etc.?: No Are you currently unemployed and looking for a job?: No Are you interested in more education?: No Please select the resources that you would like help with: Housing/Custodial Currently or been in a relationship where the following occur: No concerns reported THRIVE Score: 3 AUDIT C Alcohol Use Questionnaire (AUDIT-C) 1. How often do you have a drink containing alcohol?: Never Total Score: 0 LAINA-7 AMB Questionnaire LAINA-7 Date LAINA - 7 assessed: 12/31/24 Feeling nervous, anxious, or on edge: 3 = Nearly every day Not being able to stop or control worryin = Nearly every day Worrying too much about different things: 3 = Nearly every day Trouble relaxin = Nearly every day Being so restless that it is hard to sit still: 3 = Nearly every day Becoming easily annoyed or irritable: 1 = Several days Feeling afraid as if something awful might happen: 3 = Nearly every day Total LAINA-7 score (0-4 normal; 5-9 mild; 10-14 moderate; 15-21 severe): 19 Source: Developed by Drs. Colin Grier, Mariah Taylor, Kei Mercado and colleagues, with an educational abhishek from [employer]. Review of Systems Const Denies headache(s) Eyes Denies loss of vision ENT Denies vertigo, Denies dizziness, Denies headache(s) and Denies sore throat Card Denies chest pain, Denies leg edema and Denies lightheadedness Resp Denies cough, Denies hemoptysis and Denies wheezing GI Denies abdominal pain, Denies melena, Denies constipation, Denies diarrhea and Denies vomiting Denies urinary frequency, Denies dysuria and Denies urinary urgency Musc Reports back pain, Reports arthralgias, Denies joint swelling, Denies numbness and Denies tingling Neuro Denies Abnormal speech present, Denies behavioral changes, Denies vertigo, Denies dizziness, Denies headache(s), Denies loss of vision, Denies memory loss, Denies numbness and Denies tingling Psych Denies anxiety, Denies behavioral changes, Denies depression, Denies memory loss and Denies panic attacks Brandon/Lymph Denies easy bleeding and Denies easy bruising Aller/Immun Denies wheezing Physical exam (Primary Care) Vital Signs: Last Vital Signs Temp 97.1 F 12/31/24 14:18 Pulse 78 12/31/24 14:18 Resp 18 12/31/24 14:18 BP 124/76 12/31/24 14:18 Pulse Ox 95 12/31/24 14:18 Oxygen Delivery Method Room Air 12/31/24 14:18 BMI result Body Mass Index 30.8 BMI Assessment/Plan discussion: High BMI High, discussed plan: lifestyle, weight reduction, dietary and physical activity Tobacco/Smoking Status: Tobacco use Status Tobacco use date assessed 12/31/24 12/31/24 14:29 Patient Tobacco Use Status Former Tobacco user 12/31/24 14:29 Tobacco use type Cigarette 12/31/24 14:29 e-Cigarette/Vaping Use Never Used 12/31/24 14:29 PHQ-9: PHQ-9 Score PHQ-9: Total score 17 12/31/24 14:43 Thrive Assessment: Date of Thrive Assessment Date Thrive assessed 12/31/24 12/31/24 14:29 Currently or been in a relationship where the following occur: No concerns reported Const General: healthy appearing, no acute distress, alert and awake Nutritional Appearance: well nourished Orientation/consciousness: oriented to person, oriented to place and oriented to time HENMT Ears: TM's normal bilaterally General nose exam: Normal nasal mucous membranes and turbinates present Eyes Conjunctivae: conjunctivae normal Sclerae: sclerae normal Pupils: Equal, round and reactive pupils present Neck Neck: Yes no lymphadenopathy and Yes no JVD Thyroid: Thyroid normal Carotids: no bruits Resp Effort & Inspection: normal respiratory effort and not tachypneic Auscultation: no crackles, no rales, no rhonchi and no wheezes Cardio Rate: regular rate Rhythm: regular rhythm Heart sounds: no murmurs and normal S1 and S2 GI Palpation (GI): Soft to palpation, nontender, no hepatomegaly and no splenomegaly Auscultation: normal bowel sounds Skin General skin exam: no rashes or lesions noted and dry skin Neuro General: oriented to person, oriented to place and oriented to time Cranial nerves: Yes Equal, round and reactive pupils present Speech: No Abnormal speech present Gait exam (Neuro): Normal gait present Motor exam (neuro): no tremor noted Extrem Right upper extremity: full ROM Left upper extremity: full ROM Right lower extremity: full ROM; no edema Left lower extremity: full ROM; no edema Psych Mental Status: mental status grossly normal Speech and movement: Normal speech and movement present Affect: normal affect Attitude: cooperative Thought process: Normal thought process present Coding Level of Care Code Est Pt Level 4 (04321) Diagnoses LAINA (generalized anxiety disorder) F41.1 Primary insomnia F51.01 Insomnia type: primary 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 C43.111 Eyelid: upper Laterality: right Melanoma location: eyelid including canthus Moderate episode of recurrent major depressive disorder F33.1 Active/Remission status: currently active Major depression episode severity: moderate Major depression recurrence: recurrent Class 1 obesity E66.811 Polyarthralgia M25.50 Tricompartment osteoarthritis of right knee M17.11 Assessment & Plan Assessment & Plan (1) LAINA (generalized anxiety disorder): Code(s): F41.1 - Generalized anxiety disorder Category: Medical Plan: Patient continues to speak with a mental health therapist at [facility]. She reports she is on a waiting list to see a psychiatrist. Did have a long conversation about habit-forming nature of alprazolam as she does take 1 mg b.i.d.. She is very anxious about not having the medication as she continues to suffer with severe anxiety. I advised her to speak with the psychiatrist when she appointment available about taking over her treatment of her anxiety as it seems to be fairly severe. (2) Insomnia: Code(s): G47.00 - Insomnia, unspecified Category: Medical Qualifiers: Insomnia type: primary Qualified Code(s): F51.01 - Primary insomnia Plan: Patient continues with nightly use of zolpidem with good effect on sleep. (3) Malignant melanoma: Code(s): C43.9 - Malignant melanoma of skin, unspecified Category: Medical Qualifiers: Eyelid: upper Laterality: right Melanoma location: eyelid including canthus Qualified Code(s): C43.111 - Malignant melanoma of right upper eyelid, including canthus Plan: As per HPI patient has a history of right eye malignant melanoma. Was followed by [place] [facility] though seems to have lost follow-up lately. She is trying to get reestablished at [place] to continue monitoring her melanoma which has been in remission for quite some time. (4) MDD (major depressive disorder): Code(s): F32.9 - Major depressive disorder, single episode, unspecified Category: Medical Qualifiers: Active/Remission status: currently active Major depression episode severity: moderate Major depression recurrence: recurrent Qualified Code(s): F 33.1 - Major depressive disorder, recurrent, moderate Plan: Patient's PHQ-9 score positive for depression which has been existing condition for her. She is speaking with a mental health therapist though has found it very difficult to get a psychiatrist. She continues to be on a waiting list at [facility] (5) Class 1 obesity: Code(s): E66.811 - Obesity, class 1 Category: Medical Plan: The patient is advised to engage in non-weightbearing exercises such as swimming and biking. A prescription for Wegovy has been sent to assist with weight management, pending insurance approval. (6) Polyarthralgia: Code(s): M25.50 - Pain in unspecified joint Category: Medical Plan: Patient reporting frequent achy joints. Will send for rheumatology testing to evaluate (7) Tricompartment osteoarthritis of right knee: Code(s): M17.11 - Unilateral primary osteoarthritis, right knee Category: Medical Plan: The patient is considering knee replacement surgery but is currently unable to proceed due to unstable housing conditions. Non-weightbearing exercises are recommended to manage symptoms. Orders: Orders TSH reflex Free T4 Today E66.811 - Obesity, class 1 Rheumatoid Factor Today M25.50 - Pain in unspecified joint Erythrocyte Sedimentation Rate Today M25.50 - Pain in unspecified joint MM screening mammo BI Today Z12.31 - Encounter for screening mammogram for malignant neoplasm of breast Cyclic Citrullinated Peptide Today M25.50 - Pain in unspecified joint AUGUSTUS Reflex Titer and Pattern Today M25.50 - Pain in unspecified joint Complement C3 Today M25.50 - Pain in unspecified joint CRP High Sensitivity Today M25.50 - Pain in unspecified joint IRON PROFILE Today C43.111 - Malignant melanoma of right upper eyelid, including canthus, D50.9 - Iron deficiency anemia, unspecified Referrals Gastroenterology Referral Z12.11 - Encounter for screening for malignant neoplasm of colon Medications: Refilled semaglutide (weight loss) (Wegovy) administer weeks 1 through 4 of therapy 0.25 mg (0.5 mL) subcut QWEEK 2 mL 0RF 4 weeks E66.811 - Obesity, class 1, M17.11 - Unilateral primary osteoarthritis, right knee fluticasone propionate 50 mcg/actuation 1 spray intranasal DAILY 16 mL 3RF
--- OUTSIDE RECORDS SUMMARY | 2024-12-31 16:34 | XMS_ITS | Clinical Summary ---
Author Organization [facility] ity Address [address] [place] [address] Care Team Providers Care Room Service Waiter/Waitress Name Role Phone Unavailable Primary Care Provider [...] Smear 1993 Colorectal Cancer Screening: Colonoscopy 04/01/2022 HIV Screening 04/01/2022 Hepatitis C Screening 04/01/2022 Social Influencers of Health Screening 04/01/2022 Pneumococcal Vaccine: 50+ Ye ars (1 of 1 - PCV) 2022 Zoster Vaccines (1 of 2) 2022 Depression Screening 04/30/2024 COVID-19 Vaccine (1 - 2023-2 5 season) 2024 Influenza Vaccine (#1) 2024 HIB Vaccines Aged Out No longer [...]
--- OUTSIDE RECORDS SUMMARY | 2024-12-31 16:34 | XMS_ITS | Clinical Summary ---
Author Organization [facility] Address [address] [facility] [address] [place] [phone] Phone Care Team Providers Care Tool Repair Technician Name Role Phone Sergey Roberson MD, Nicholas John PA Primary Care Provider + Allergies Active Allergy Reactions Criticality Noted Date Comments Fluorescein 09/05/2016 Medications buPROPion (WELLBUTRIN SR) 200 MG SR 12 hr tablet Take 200 mg by mouth 2 (two) times a day. Active zolpidem (AMBIEN) 5 MG tablet Take 5 mg by mouth nightly as needed for sleep. Active ALPRAZolam (XANAX) 0.5 MG tablet Take 0.5 mg by mouth nightly as needed for sleep. Active acetaminophen (TYLENOL) 500 MG tablet Take 500 mg by mouth every 6 (six) hours as needed for pain (specific location in comments). Active butalbital-aspi rin-caffeine (FIORINAL) 50-325-40 mg per capsule Take 1 capsule by mouth every 4 (four) hours as needed for headache. Active VENTOLIN HFA 90 mcg/actuation inhaler 05/21/2022 Active fluticasone propionate (FLONASE) 50 mcg/actuation nasal spray USE I SPRAY IN EACH NASAL PASSAGE DAILY 05/22/2022 Active cetirizine (ZYRTEC) 10 MG tablet Take 10 mg by mouth daily. 05/23/2022 Active Active Problems No known active problems Family History Medical History Relation Comments Cancer Maternal Grandfather Cardiovascular disease Maternal Grandfather Lung cancer Maternal Grandfather Cardiovascular disease Paternal Grandfather Relation Status Comments Maternal Grandfather Paternal Grandfather Social History Tobacco Use Types Packs/Day Years Used Date Smoking Tobacco: Some Days Smokeless Tobacco: Never Education Answer Date Recorded Are you interested in more education? Not on christiane e 08/27/2022 Are you concerned about learning? Not on file 08/27/2022 No 08/27/2022 No 08/27/2022 Digital Access Answer Date Recorded No 09/24/2022 No 09/24/2022 No 09/24/2022 Reliable internet access at home? Not on file 09/24/2022 Device with a working camera? Not on file Comments Unknown Sex and Gender Information Value Date Recorded Sex Assigned at Female 11/27/2023 9:13 AM EDT Legal Sex Female 5:22 PM EST Gender Identity Female 11/27/2023 9:13 AM EDT Sexual Orientation Straight 11/27/2023 9: 13 AM EDT Plan of Treatment Health Maintenance Due Date Last Done Comments Adult Td,Tdap Booster 1972 LIPID PANEL 1972 DEPRESSION SCREENING 1984 SMOKING Hx and SMOKELESS TOB ACCO SCREENING 1985 HEPATITIS C SCREENING 1990 HIV ONE-TIME SCREENING (18-6 5 YEARS) 1990 PNEUMOCOCCAL VACCINES (50+ y ears) (1 of 2 - PCV) 07/22/1991 PAP SMEAR 1993 MAMMOGRAM 2012 COLOGUARD 2017 COLONOSCOPY 2017 COLORECTAL CANCER SCREENING 2017 FIT TEST 2017 FOBT 2017 SIGMOIDOSCOPY 2017 VIRTUAL COLONOSCOPY 2017 ZOSTER VACCINES (1 of 2) 2022 COVID-19 VACCINE (2 - 2023-2 5 season) 2023 09/28/2020 HEPATITIS A VACCINES Aged Out No long er eligible based on patient's age to complete this topic HIB VACCINES Aged Out No longer eligi ble based on patient's age to complete this topic MENINGOCOCCAL VACCINES (ACWY) Aged Out No longer eligible based on patient's age to complete this topic MENINGOCOCCAL VACCINES (B) Aged Out N o longer eligible based on patient's age to complete this topic Medical Devices Not on file [place] [address] [place] [address] ACO Care Teams Tool Repair Technician Relationship Specialty Start Date End Date Brice Farrell PA [address] [place] [id number] PCP - General 06/10/19 Sergey Roberson MD [address] [place] [id number] Ophthalmology 09/04/16 Brice Farrell [address] [address] 01/07/18 Additional Source Comments The information contained in this document represents components of the legal health record. It is not the complete legal health record.[facility]
== END 2024-12-31 15:09 | disposition home or self-care (01) ==
LOC: HO.HMCH 14:10
PROVIDERS: PCP Physician Assistant; Visit Provider Physician Assistant
DX: F33.1 Major depressive disorder, recurrent, moderate (principal); C43.111 Malignant melanoma of right upper eyelid, including canthus; E66.811 Obesity, class 1; Z68.30 Body mass index [BMI] 30.0-30.9, adult; F41.1 Generalized anxiety disorder; F51.01 Primary insomnia; M25.50 Pain in unspecified joint; M17.11 Unilateral primary osteoarthritis, right knee

== ENCOUNTER → 2024-12-31 14:09 | Outpatient (BNVA) | payer OTHER, SELFPAY | PROVIDERS: PCP Physician Assistant; Visit Provider Physician Assistant | DX: F41.1 Generalized anxiety disorder (principal); F11.21 Opioid dependence, in remission; F51.01 Primary insomnia; F33.1 Major depressive disorder, recurrent, moderate; G43.909 Migraine, unspecified, not intractable, without status migrainosus; J45.909 Unspecified asthma, uncomplicated; E66.811 Obesity, class 1; C43.111 Malignant melanoma of right upper eyelid, including canthus; M25.50 Pain in unspecified joint; M17.11 Unilateral primary osteoarthritis, right knee; Z68.30 Body mass index [BMI] 30.0-30.9, adult | CPT/HCPCS: 99212 ==

== ENCOUNTER 2025-02-10 14:31 | Outpatient (REF) | payer OTHER, SELFPAY ==
--- NOTE | ~2025-02-10 | XR_ITS ---
EXAMINATION: XR CHEST CLINICAL INFORMATION: J40 - Bronchitis, not specified as acute or chronic COMPARISON: November 06, 2018 TECHNIQUE: 2 views of the chest were obtained. FINDINGS: No significant abnormality is noted involving the heart, lungs, mediastinum, bony thorax or soft tissues. XR/XR chest 2V IMPRESSION: No acute disease Electronically signed by: Juan Jose Waters MD 02/10/2025 02:57 PM EDT
--- OUTSIDE RECORDS SUMMARY | 2025-02-10 17:25 | XMS_ITS | Clinical Summary ---
Author Organization [facility] it Address [address] [place] [address] Care Team Providers Care Neonatal Intensive Care Nurse Name Role Phone Unavailable Primary Care Provider [...] Last Done Comments Breast Cancer Screening 1972 Colorectal Cancer Screening: Colonoscopy 1972 DTaP,Tdap,and Td Vaccines (1 - Tdap) 07/22/1991 Hepatitis B Vaccines (1 of 3 - 19+ 3-dose series) 07/22/1991 Cervical Cancer Screening: P ap Smear 1993 HIV Screening 04/01/2022 Hepatitis C Screening 04/01/2022 Social Influencers of Health Screening 04/01/2022 Pneumococcal Vaccine: 50+ Ye ars (1 of 1 - PCV) 2022 Zoster Vaccines (1 of 2) 2022 Depression Screening 04/30/2024 COVID-19 Vaccine (1 - 2023-2 5 season) 2024 Influenza Vaccine (#1) 2024 RSV Immunization Adult Patie nts (1 - 1-dose 75+ series) 07/22/2047 HIB Vaccines Aged Out No longer eligi [...]
--- OUTSIDE RECORDS SUMMARY | 2025-02-10 17:25 | XMS_ITS | Clinical Summary ---
Author Organization [facility] Address [address] [facility] [address] [place] [phone] Phone Care Team Providers Care Associate Media Director Name Role Phone Sergey Roberson MD, Nicholas [...] 2017 ZOSTER VACCINES (1 of 2) 2022 INFLUENZA VACCINE (#1) 2024 06/04/2018 COVID-19 VACCINE (2 - 2024-2 6 season) 2024 09/28/2020 RSV VACCINE (1 - 1-dose 75+ series) 07/22/2047 HEPATITIS A VACCINES Aged Out No long [...] topic Medical Devices Not on file Insurance Care Teams Associate Media Director Relationship Specialty Start Date End Date Brice Farrell PA [address] [place] [id number] PCP - General 06/10/19 Sergey Roberson MD [address] [id number] Ophthalmology 09/04/16 Brice GABRIEL [address] [place] [id number] 01/07/18 Additional Source Comments The information contained in this document represents components of the legal health record. It is not the complete legal health record.[facility]
== END 2025-02-10 14:32 | disposition home or self-care (01) ==
LOC: HO.XRAY 14:31
PROVIDERS: PCP Physician Assistant; Visit Provider Physician Assistant
DX: J40 Bronchitis, not specified as acute or chronic (principal)
CPT/HCPCS: 71046

== ENCOUNTER → 2025-02-10 14:38 | Outpatient (BNV) | payer OTHER, SELFPAY | PROVIDERS: PCP Physician Assistant; Visit Provider Radiology Diagnostic Radiology | DX: J40 Bronchitis, not specified as acute or chronic (principal) | CPT/HCPCS: 71046 ==